=== PATIENT | female | born 1970 | race Caucasian/White ===

== ENCOUNTER 2021-02-11 11:52 | Outpatient (CLI) | payer BC, SELFPAY ==
[2021-02-11 13:57] LABS: Influenza A QL RT-PCR Negative (Negative); Influenza B QL RT-PCR Negative (Negative); SARS-CoV-2 RNA PCR Negative (Negative)
== END 2021-02-11 11:53 | disposition home or self-care (01) ==
LOC: CHSLAB 11:55
PROVIDERS: PCP Internal Medicine; Visit Provider Internal Medicine
DX: J06.9 Acute upper respiratory infection, unspecified (principal); Z20.822 Contact with and (suspected) exposure to COVID-19
CPT/HCPCS: 87502; C9803; U0003; U0005

== ENCOUNTER 2021-06-02 16:27 | Outpatient (CLI) | payer BC, SELFPAY | END 2021-06-02 16:28 | disposition home or self-care (01) | LOC: CHSOUTPT 16:31 | PROVIDERS: PCP Internal Medicine; Visit Provider Specialist | DX: C44.519 Basal cell carcinoma of skin of other part of trunk (principal) | CPT/HCPCS: 88305 ==

== ENCOUNTER 2021-08-06 16:44 | Outpatient (CLI) | payer BC, SELFPAY ==
--- NOTE | ~2021-08-06 | CT_ITS ---
EXAMINATION: CT abdomen pelvis wo con DATE: 08/06/2021 17:06 INDICATION: Umbilical pain, tenderness and redness for one week TECHNIQUE: Computed tomography (CT) of the abdomen and pelvis was performed without intravenous contr ast. Automated exposure control and iterative reconstruction technique were employed. Exam dose: 312 .31 mGy-cm total exam DLP. COMPARISON: None. FINDINGS: The lung bases are clear. Normal heart size. No pericardial or pleural effusion. Small sliding hiatal hernia. The gallbladder appears to be present but contracted. No hepatic, splenic, pancreatic, and adrenal or renal space-occupying mass lesion is detected. No bile duct or pancreatic duct dilatation. No urinar y tract calculus or hydroureteronephrosis is evident. The urinary bladder is unremarkable. Approximately 3 x 3.5 cm right ovarian cyst. The uterus measures approximately 10 x 5 cm height and up to 5.5 cm anteroposterior dimension. Normal caliber of the abdominal aorta. No intraperitoneal or retroperitoneal or pelvic mass lesion or adenopathy or ascites. Included skeletal structures are unremarkable. IMPRESSION: 3 x 3.5 cm right ovarian cyst Small sliding hiatal hernia Normal appendix Reviewed, dictated and finalized at [facility] Reviewed, dictated and finalized at [facility].
== END 2021-08-06 16:45 | disposition home or self-care (01) ==
LOC: CHSIMG 16:46
PROVIDERS: PCP Internal Medicine; Visit Provider Nurse Practitioner Family
DX: K42.9 Umbilical hernia without obstruction or gangrene (principal)
CPT/HCPCS: 74176

== ENCOUNTER 2022-03-26 00:36 | Day surgery (SDC) | payer BC, SELFPAY ==
[2022-03-15 14:33] VITALS: BMI 21.7
--- NOTE | 2022-03-15 14:35 | SUR.PREOP ---
Report to the Outpatient Waiting Room, entrance under the green pavilion located off [facility], at time 1000 on date 03/26/22. Planned Procedure Time: 1200. Time changes happen often and if your time is changed the preop area will call you the afternoon before. - You and your visitor will be asked to self-screen and do not enter if you have any COVID symptoms. - Only one visitor is requested with a max of two and NO children visitors are allowed at this time. - The patient visitor may be requested to leave or wait in car when not with patient due to distancing restrictions. - A mask is optional within the hospital at this time. Patients may have clear liquids (water, carbonated beverages, clear teas, apple juice) until 3 hours prior to surgery with a maximum of 20 ounces. - No food from midnight until time of surgery - Infants may have breast milk until 4 hours before surgery, formula 6 hours prior to surgery. - Children will be allowed to drink immediately following surgery. If applicable, please bring a bottle or sippy cup to assist with drinking. Juice, water, soda, and popsicles are readily available. For infants on formula, please bring formula the day of surgery. Pacifiers are allowed. Take the following medications with a SIP of water the morning of surgery: N/A DO NOT STOP ANY OF YOUR OTHER PRESCRIPTION MEDICATIONS PRIOR TO SURGERY ?EXCEPT THE FOLLOWING Medications to discontinue per physician N/A Date to take last dose N/A Please no make-up, nail latvian, hairspray, perfume, deodorant, or body powder the day of surgery. No jewelry (including any body piercings) or valuables the day of surgery, leave them at home. Please take a shower or bath the night before, or the morning of, surgery with an antibacterial soap. Wear comfortable, loose fitting clothing. Children are encouraged to wear pajamas. - Jewelry must be removed prior to entering the operating room. Rings and piercings that are not removed may be cut off. - The hospital will not accept responsibility for valuables. - Please leave all valuables, including medications, at home the day of surgery. If you are going home after surgery, a licensed helper driver must drive you home. - NO public transportation without another adult if you receive anesthesia. - We recommend that an adult stay with you for 24 hours following discharge. - We also recommend that you do not drive, make important decision, drink alcoholic beverages, or take any drugs that were not prescribed by your health care provider for at least 24 hours after your discharge time. For Pediatric surgeries, we recommend two adults accompany the child home. Follow any additional instructions given to you from your surgeon. If you or anyone in your household have experienced Covid symptoms in the past week, please notify your surgeon or the nurse liaison at the phone number below for possible testing. Telephone instructions given to CHING RAMOS and asked if any additional questions and then verbalized understanding. Patient advised to call surgeon office or pre surgery nurse liaison [phone] if any additional questions.
[2022-03-26] VITALS (9 sets, daily range): BP systolic 96–123; BP diastolic 59–71; PULSE 51–79; RESP 13–22; TEMP 36.1–36.7; O2SAT 99–100
[2022-03-26] MEDS: ACETAMINOPHEN 500 MG TABLET 1000 MG PO (08:03)
[2022-03-26] MEDS: LACTATED RINGERS 1,000 ML 30 ML IV CONT ×2 (08:20→10:54)
[2022-03-26] MEDS: KETOROLAC 15 MG/ML VIAL (*BKC) IV PUSH (08:31)
--- NOTE | 2022-03-26 08:44 | P.PNAN_ITS ---
Anes - Initial Pre Proc Eval Procedure: Operation Date: 03/26/22 10:00 Proposed Procedures p Open Incarcerated Umbilical Hernia Repair, Possible Mesh - Scottie Anthony DO Date/Time: 03/26/22 08:44 Surgeon: Scottie Anthony DO Pre Op Diagnosis: incarcerated umbilical hernia Patient Data Age: 52 Gender: F Height: 1.75 m Weight: 66.7 kg Allergies Allergy/AdvReac Type Severity Reaction Status Date / Time No Known Allergies Allergy Verified 03/26/22 08:02 Home Medications Medication Instructions Recorded Confirmed Type doxycycline monohydrate 50 mg 50 mg PO DAILY 03/15/22 03/15/22 History capsule Patient hx anesthesia problems: none Family hx anesthesia problems: none Results Review: All pre-operative results and documents have been reviewed as part of the pre- operative evaluation. [facility] Past Medical History Medical History History of blood clots Surgical History Surgical History Previous section Social History Social History Smoking status: Never smoker Alcohol intake: current Alcohol use details: Socially Living arrangements: with family Occupation/Education: occupation Additional occupation/education comments: [employer] Gender identity (if verbalized by the patient): Female Spiritual care concerns: No Anes - Eval Final PreProcedure Day of Procedure 03/26/22 08:44 Patient weight: normal Heart: regular rate and rhythm Lungs: clear to auscultation Airway: Mallampati scale class 1 Neurological: alert and oriented Last oral intake: >/= 8 hours ASA classification: I Emergent: no Anesthetic plan: proceed Anesthesia type and monitoring: general LMA and standard monitoring Results Review: All pre-operative results and documents have been reviewed as part of the pre- operative evaluation. Informed Consent: The patient's anesthetic plan and its attendant risks and benefits were discussed with the patient/family/POA. Questions were solicited and answers provided to the satisfaction of the patient/family/POA.
--- NOTE | 2022-03-26 09:44 | WPDHPUPDATE1 ---
History and Physical Update Update Date/Time: 03/26/22 09:44 History and Physical has been reviewed, including an updated exam of the patient. There are NO changes in the patient's condition. Risks, benefits, and alternatives have been discussed and questions answered. Patient agrees to proceed with procedure.
--- NOTE | 2022-03-26 09:44 | PM.IMHP ---
H&P: HPI History of Present Illness Date/Time: 03/26/22 09:44 Chief Complaint: umbilical hernia Narrative: 52 yo woman presents for umbilical hernia repair. She denies any changes since last seen in office. Review of Systems Review of Systems: All systems reviewed & are unremarkable except as noted in HPI and below Constitutional: Constitutional: Denies chills, Denies fever(s), Denies headache(s) and Denies weight loss Eyes: Eyes: Denies change in vision ENT: Denies dizziness, Denies headache(s), Denies neck mass and Denies throat swelling Cardiovascular: Cardiovascular: Denies chest pain, Denies lightheadedness and Denies dyspnea Respiratory: Respiratory: Denies cough, Denies dyspnea and Denies wheezing Gastrointestinal: Gastrointestinal: Denies abdominal pain, Denies change in bowel habits, Denies nausea and Denies vomiting Genitourinary: Genitourinary: Denies hematuria and Denies dysuria Musculoskeletal: Musculoskeletal: Reports as per HPI Integumentary/Breasts: Skin/Breast: Reports as per HPI Neurologic: Denies dizziness and Denies headache(s) Allergic/Immunologic: Allergic/Immunologic: Denies throat swelling and Denies wheezing [facility] Past Medical History Medical History History of blood clots Surgical History Surgical History Previous section Social History Social History Smoking status: Never smoker Alcohol intake: current Alcohol use details: Socially Living arrangements: with family Occupation/Education: occupation Additional occupation/education comments: [employer] Gender identity (if verbalized by the patient): Female Spiritual care concerns: No Meds Home Medications and Allergies Home Medications Medication Instructions Recorded Confirmed Type doxycycline monohydrate 50 mg 50 mg PO DAILY 03/15/22 03/15/22 History capsule Allergies Allergy/AdvReac Type Severity Reaction Status Date / Time No Known Allergies Allergy Verified 03/26/22 08:02 Vital Signs Vital Signs - 24 hr 03/26/22 08:10 Temperature 36.7 C Pulse Rate 64 Respiratory Rate 20 Blood Pressure 104/67 Pulse Oximetry 100 Oxygen Delivery Room Air Exam Const: General: no acute distress and alert Orientation/consciousness: patient oriented x3 HENMT: Head: normocephalic and atraumatic Ears: hearing grossly normal bilaterally Face/Nose/Sinus: Normal nares present Mouth: Yes Normal oral and palatal mucosa present Eyes: Periorbital: periorbital findings normal Sclera: sclerae normal EOM: EOMs intact bilaterally Neck: Neck: normal visual inspection, no lymphadenopathy and trachea midline Chest: Chest palpation & inspection: normal inspection of the chest Resp: Effort & Inspection: normal respiratory effort Auscultation: clear to auscultation bilaterally Cardio: Jugular venous distension: no JVD Rate: regular rate Rhythm: regular rhythm Heart sounds: S1 normal heart sound present and S2 normal heart sound present Peripheral pulses: Peripheral pulses 2+ throughout GI: Inspection: normal to inspection GI Palp: Yes Soft to palpation, No Tenderness to palpation present (GI), No Guarding due to palpation present (GI), Yes Hernia present (5mm umbilical hernia) and No Rebound tenderness present Percussion: Yes normal to percussion Auscultation: normal bowel sounds : General: Yes no CVA tenderness Back/Spine/Pelvis: Back: no CVA tenderness Neuro: General: patient oriented x3, no focal motor deficits and CN's II-XI intact bilaterally Cognition (Neuro): normal cognition Speech: normal speech Motor exam (neuro): 5/5 motor strength present throughout Extrem: General: capillary refill normal and no clubbing, cyanosis or edema Assessment and Plan Assessment and plan (1) Incarcerated umbilical hernia:
[2022-03-26] MEDS: ceFAZolin 2 GM/D5W 50 ML 2 GM/50 ML BAG IVPB (09:59)
[2022-03-26] MEDS: BUPIVACAINE/EPINEPHRINE 0.5% 10 ML VIAL 30 ML INFILTRATE (10:16)
--- NOTE | 2022-03-26 10:44 | W.PM.PROC2 ---
Procedure Note - Detailed Date of Procedure 03/26/22 Pre-op Diagnosis incarcerated umbilical hernia Post-op Diagnosis Same Procedure Performed Incarcerated 0.5 cm umbilical hernia repair Surgeon Scottie Anthony, DO Anesthesia General and Local (0.5% bupivacaine with epinephrine) Indications This is a 52-year-old woman who presented with an incarcerated umbilical hernia. About 6 months ago she had noticed some umbilical pain and a bulge at her umbilical skin. She was found to have a small umbilical hernia that appeared to be incarcerated with fat. The skin was somewhat reddened but there were no other surrounding signs of infection. Discussions were made with the patient about treatment options and decision was made to proceed with incarcerated umbilical hernia repair. Findings Incarcerated umbilical hernia repair was performed. The umbilical hernia measured 0.5 cm. The hernia sac was excised and sent to the lab for pathology. The hernia was repaired primarily using 0 Ethibond [id number] sutures. A total of 2 sutures were placed transversely to approximate the fascia. The patient did have some chronically scarred umbilical skin that was very indurated and densely scarred to the hernia sac. I had to excise umbilical skin involved. Description of Procedure Procedure as well as risks, benefits, and alternatives were discussed with the patient. Written consent was obtained and placed in chart prior to procedure. Patient was brought back to surgical suite. She was placed supine on operating table to. Time-out was done to confirm patient and procedure. She was then intubated by the anesthesia department. Her abdomen was prepped and draped in sterile fashion using chlorhexidine prep. 0.5% bupivacaine with epinephrine was infiltrated locally around the area for surgery. A 2 cm curvilinear incision was made at the superior edge of the umbilical skin using a 15 blade scalpel. Electrocautery was used for hemostasis and for dissection through the subcutaneous tissue. The umbilical hernia defect was identified and the fascia was cleared circumferentially around. The umbilical skin was densely adherent to the umbilical hernia sac and the umbilical skin appeared very indurated around it. I excised the umbilical skin using a 15 blade scalpel and then excised the hernia sac using electrocautery. The hernia defect measured 5 mm. The fascial edges were reapproximated to close the hernia using 0 Ethibond [id number] sutures. A total of 2 sutures were placed transversely and then tied down in place to repair the defect. The repair was inspected and appeared secure. 0.5% bupivacaine with epinephrine was infiltrated locally around the fascia and subcutaneous space. The umbilical skin was then brought back together using 4-0 Monocryl inverted interrupted sutures. The deep dermis of the incision was then reapproximated using 3-0 Vicryl inverted interrupted sutures. The skin was then approximated using 4-0 Monocryl running subcuticular suture. Exofin glue was then applied on top. The patient was then awakened from anesthesia, extubated, and transferred to recovery. Estimated Blood Loss 5 Pathology Yes (Umbilical hernia sac) Complications No immediate complications Condition Stable Disposition Same day [facility] Billing Surgery - Charge Forward: Surgery Billing
== END 2022-03-26 12:56 | disposition home or self-care (01) ==
PROVIDERS: PCP Internal Medicine; Visit Provider Surgery
PROC: (CPT 49592; principal; 2022-03-26 10:00)
DX: K42.0 Umbilical hernia with obstruction, without gangrene (principal); N80.C11 Endometriosis of the anterior abdominal wall, fascia and muscular layers
CPT/HCPCS: 49592; 88302; A9270; J0690; J1100; J1170; J1885; J2250; J2405; J2704; J2710; J3010; J7120

== ENCOUNTER 2023-01-27 00:58 | Day surgery (SDC) | payer BC, SELFPAY ==
[2023-01-17 11:03] VITALS: BMI 21.5
--- NOTE | 2023-01-25 10:43 | SUR.PREOP ---
Patient called regarding upcoming procedure. Reviewed preop instructions, appointment times, and procedure prep.
[2023-01-27 06:35] VITALS: BP 106/67; PULSE 71; RESP 18; TEMP 36.3; O2SAT 100; BMI 20.9
[2023-01-27] MEDS: LACTATED RINGERS 1,000 ML 30 ML IV CONT (06:54)
--- NOTE | 2023-01-27 07:22 | P.PNAN_ITS ---
Anes - Initial Pre Proc Eval Procedure: Operation Date: 01/27/23 08:00 Proposed Procedures p Screening Colonoscopy - Scottie Anthony DO Date/Time: 01/27/23 07:22 Surgeon: Scottie Anthony DO Pre Op Diagnosis: neoplasm screening Patient Data Age: 53 Gender: F Height: 1.78 m Weight: 66.3 kg Last Vital Signs Temp 97.3 F L 01/27/23 06:35 Pulse 71 01/27/23 06:35 Resp 18 01/27/23 06:35 BP 106/67 01/27/23 06:35 Pulse Ox 100 01/27/23 06:35 O2 Del Method Room Air 01/27/23 06:35 Allergies Allergy/AdvReac Type Severity Reaction Status Date / Time No Known Allergies Allergy Verified 01/27/23 06:41 Home Medications Medication Instructions Recorded Confirmed Type No Home Medications 10/27/22 01/27/23 History Patient hx anesthesia problems: none Family hx anesthesia problems: none Results Review: All pre-operative results and documents have been reviewed as part of the pre- operative evaluation. [facility] Past Medical History Medical History (Updated 10/27/22 @ 09:29 by Ab Alonzo MD) Endometriosis Fibroid, uterine History of blood clots Ovarian cyst Surgical History Surgical History H/O umbilical hernia repair Open umb hernia repair 03/26/22 Previous section Social History Social History (Updated 10/27/22 @ 08:20 by ALLEN Coe) Smoking status: Never smoker Alcohol intake: former Alcohol use details: Socially Substance use: never Substance use type: does not use Lack of Transportation: No Lack of Food: Never True Current Housing: I Have Housing Concerned About Future Housing: No Difficulty Paying Gas/Electric Bills: No Difficulty Paying for Meds: No Currently Unemployed: No Education: Bachelor's Degree Difficulty w/ Childcare or Family Care: No Living arrangements: other Additional living arrangements comments: with sp Occupation/Education: occupation Additional occupation/education comments: [employer] Gender identity (if verbalized by the patient): Female Sexual Orientation (if Verbalized by the Patient): Straight or Heterosexual Spiritual care concerns: No Anes - Eval Final PreProcedure Day of Procedure 01/27/23 07:22 Patient weight: normal Heart: regular rate and rhythm Lungs: clear to auscultation Airway: Mallampati scale class II Neurological: alert and oriented Last oral intake: >/= 8 hours ASA classification: I Emergent: no Anesthetic plan: proceed Anesthesia type and monitoring: general GIVS and standard monitoring Results Review: All pre-operative results and documents have been reviewed as part of the pre- operative evaluation. Informed Consent: The patient's anesthetic plan and its attendant risks and benefits were discussed with the patient/family/POA. Questions were solicited and answers provided to the satisfaction of the patient/family/POA.
--- NOTE | 2023-01-27 07:55 | PM.IMHP ---
H&P: HPI History of Present Illness Date/Time: 01/27/23 07:55 Chief Complaint: Screening for colorectal cancer Narrative: This is a 53-year-old woman who presents for colonoscopy. She has never had a colonoscopy before. She denies any family history of colon cancer. She denies any hematochezia or melena. Review of Systems Review of Systems: All systems reviewed & are unremarkable except as noted in HPI and below Constitutional: Constitutional: Denies chills, Denies fever(s), Denies headache(s) and Denies weight loss Eyes: Eyes: Denies change in vision ENT: Denies dizziness, Denies headache(s), Denies neck mass and Denies throat swelling Cardiovascular: Cardiovascular: Denies chest pain, Denies lightheadedness and Denies dyspnea Respiratory: Respiratory: Denies cough, Denies dyspnea and Denies wheezing Gastrointestinal: Gastrointestinal: Denies abdominal pain, Denies change in bowel habits, Denies nausea and Denies vomiting Genitourinary: Genitourinary: Denies hematuria and Denies dysuria Musculoskeletal: Musculoskeletal: Reports as per HPI Integumentary/Breasts: Skin/Breast: Reports as per HPI Neurologic: Denies dizziness and Denies headache(s) Allergic/Immunologic: Allergic/Immunologic: Denies throat swelling and Denies wheezing [facility] Past Medical History Medical History (Updated 01/27/23 @ 07:56 by Scottie Anthony DO) Endometriosis Fibroid, uterine History of blood clots Ovarian cyst Surgical History Surgical History H/O umbilical hernia repair Open umb hernia repair 03/26/22 Previous section Social History Social History (Updated 10/27/22 @ 08:20 by ALLEN Coe) Smoking status: Never smoker Alcohol intake: former Alcohol use details: Socially Substance use: never Substance use type: does not use Lack of Transportation: No Lack of Food: Never True Current Housing: I Have Housing Concerned About Future Housing: No Difficulty Paying Gas/Electric Bills: No Difficulty Paying for Meds: No Currently Unemployed: No Education: Bachelor's Degree Difficulty w/ Childcare or Family Care: No Living arrangements: other Additional living arrangements comments: with sp Occupation/Education: occupation Additional occupation/education comments: [employer] Gender identity (if verbalized by the patient): Female Sexual Orientation (if Verbalized by the Patient): Straight or Heterosexual Spiritual care concerns: No Meds Home Medications and Allergies Home Medications Medication Instructions Recorded Confirmed Type No Home Medications 10/27/22 01/27/23 History Allergies Allergy/AdvReac Type Severity Reaction Status Date / Time No Known Allergies Allergy Verified 01/27/23 06:41 Vital Signs Vital Signs - 24 hr 01/27/23 06:35 Temperature 36.3 C L Pulse Rate 71 Respiratory Rate 18 Blood Pressure 106/67 Pulse Oximetry 100 Oxygen Delivery Room Air Exam Const: General: no acute distress and alert Orientation/consciousness: patient oriented x3 HENMT: Head: normocephalic and atraumatic Ears: hearing grossly normal bilaterally Face/Nose/Sinus: Normal nares present Mouth: Yes Normal oral and palatal mucosa present Eyes: Periorbital: periorbital findings normal Sclera: sclerae normal EOM: EOMs intact bilaterally Neck: Neck: normal visual inspection, no lymphadenopathy and trachea midline Chest: Chest palpation & inspection: normal inspection of the chest Resp: Effort & Inspection: normal respiratory effort Auscultation: clear to auscultation bilaterally Cardio: Jugular venous distension: no JVD Rate: regular rate Rhythm: regular rhythm Heart sounds: S1 normal heart sound present and S2 normal heart sound present Peripheral pulses: Peripheral pulses 2+ throughout GI: Inspection: normal to inspection GI Palp: Yes Soft to palpation, No Tenderne
[2023-01-27 08:33] VITALS: BP 130/58; PULSE 71; RESP 18; O2SAT 100
[2023-01-27 08:43] VITALS: BP 110/66; PULSE 68; RESP 17; O2SAT 100
[2023-01-27 08:53] VITALS: BP 113/72; PULSE 65; RESP 22; O2SAT 100
== END 2023-01-27 09:00 | disposition home or self-care (01) ==
PROVIDERS: PCP Internal Medicine; Visit Provider Surgery
PROC: 0DJD8ZZ Inspection of Lower Intestinal Tract, Via Natural or Artificial Opening Endoscopic (ICD-10-PCS; CPT 45378; principal; 2023-01-27 08:00)
DX: Z12.11 Encounter for screening for malignant neoplasm of colon (principal); K57.30 Diverticulosis of large intestine without perforation or abscess without bleeding
CPT/HCPCS: 45378; J2704; J7120

== ENCOUNTER 2024-08-02 14:05 | Outpatient (CLI) | payer BC, SELFPAY ==
--- NOTE | ~2024-08-02 | MM_ITS ---
EXAMINATION: MM screening domingo BI w jose HISTORY: Screening TECHNIQUE: Craniocaudal and mediolateral oblique 3-D tomosynthesis images were obtained and synthetic 2-D images were generated. CAD analysis was submitted and interpreted. COMPARISON: 04/05/2018 BREAST PARENCHYMAL COMPOSITION: Dense: The breasts are extremely dense, which lowers the sensitivity of mammography. FINDINGS: There are developing asymmetries in the upper outer quadrant of the right breast. The left breast is stable without evidence for malignancy. IMPRESSION: 1. Developing right breast asymmetries. 2. Additional mammographic views and possible breast ultrasound are recommended. BI-RADS Category 0: Incomplete: Needs additional imaging evaluation. Reviewed, dictated and finalized at location A. IMPRESSION: 1. Developing right breast asymmetries. 2. Additional mammographic views and possible breast ultrasound are recommended . BI-RADS Category 0: Incomplete: Needs additional imaging evaluation.
--- OUTSIDE RECORDS SUMMARY | 2024-08-02 14:24 | XMS_ITS | Referral Summary ---
Author Organization [facility] Office Center Address [address] [place] [address] Care Team Providers Care Bee Producer Name Role Phone Fabian Hernandez MD Primary Care Provider [phone] Fabian Hernandez MD Unavailable [phone] Allergies No known active allergies Medications ofloxacin (OCUFLOX) 0.3 % ophthalmic solution Administer 1 drop into the right eye 2 (two) times a day 0 9 Active metroNIDAZOLE (METROGEL) 0.75 % gelIndications: Acne Rosacea Apply topically 2 (two) times a day 3 Active ibuprofen (ADVIL,MOTRIN) 800 mg tablet Take 1 tablet (800 mg total) by mouth every 6 (six) hours as needed for pain (menstral cramps) Active zglvjirbk-AH-ef etaminophen 12.5-5-325 mg tabletIndicatio ns:Nasal Congestion Take by mouth as needed Active mv,calcium,min/ iron/folic/vitK (MULTI FOR HER ORAL) Take 2 tablet/chew tab by mouth as needed Active Active Problems Problem Noted Date Diagnosed Date Pelvic mass in female 09/08/2022 Acute abscess of breast 02/01/2019 Cyst of breast 02/01/2019 Superficial phlebitis and th rombophlebitis of right lower extremity 10/23/2018 Assessment & Plan (10/23/2018 2:43 PM CDT): Impression: Small 1 cm superficial thrombophlebitis noted to a branch vein off her distal Right great saphenous vein. Plan: Warm compress and nonsteroidal anti-inflammatory p.r.n.. Varicose veins of both lower extremities with pa in 11/03/2016 Assessment & Plan (10/23/2018 2:44 PM CDT): Impression: Persistent right lower extremity edema, leg fatigue with periods of prolonged standing with painful varicosities. Greater than 2nd reflux noted to her right great saphenous vein. Patient would be a good candidate for right great saphenous vein endovenous laser ablation therapy stab phlebectomies. The procedure and associated risks were discussed with the patient in detail in which she acknowledged and agreed to proceed. Plan: Schedule elective right great saphenous vein endovenous laser ablation therapy. Social History Tobacco Use Types Packs/Day Years Used Date Smoking Tobacco: Never Passive Smoke Exposure: Never Smokeless Tobacco: Never Tobacco Cessation:Counseling Given: Not Answered Personal Safety Answer Date Recorded Have you ever been in or are you currently in a harmful physical or emotional relationship or is someone making you feel afraid or unsafe? Denies 12/22/2022 Comments Unknown Sex and Gender Information Value Date Recorded Sex Assigned at Not on file Legal Sex Female 3:02 AM [employer] TILE [employer] Gender Identity Not on file Sexual Orientation Not on file Last Filed Vital Signs Vital Sign Reading Time Taken Comments Blood Pressure 111/73 01/19/2023 10:33 AM [employer]AIC TILE [employer] Pulse 71 01/19/2023 10:33 AM [employer] TILE [employer] Temperature 36.9 C (98.4 F) 01/19/2023 10:33 AM MOSAIC TILE [employer]ER Respiratory Rate 16 01/19/2023 10:33 AM MOSAIC TILE [employer]KER Oxygen Saturation 97% 01/19/2023 10:33 AM MOSAIC TILE [employer]KER Inhaled Oxygen Concentration - - Weight 69.4 kg (153 lb) 01/19/2023 10:33 AM MOSAIC TILE [employer]KER Height 175.3 cm (5' 9.02) 01/19/2023 10:[address] Body Mass Index 22.58 01/19/2023 10:33 AM MOSAIC TILE [employer]KER Plan of Treatment Not on file Procedures Procedure Name Priority Date/Time Associated Diagnosis Comments DIGITAL MAMMOGRAPHY Routine 07/24/2012 1 2:00 AM CDT from Last 3 Months or Most Recently Relevant to Health Maintenance Results * DIGITAL MAMMOGRAPHY (07/24/2012 12:00 AM CDT) Anatomical Region Laterality Modality Breast Mammography 07/24/2012 Narrative 07/25/2012 7:59 AM CDT [place], [place] MICHELLE RAMOSMHL O ENCOUNTER: [id number] BIRTHDATE: 1970 ORDERING PHYSICIAN: Nahed Han MD ATTENDING PHYSICIAN: Nahed Han MD TECHNOLOGIST: Tamar Hooks EXAM DATE: 07/24/2012 14:01 X-RAY#: [id number] DEPARTMENT OF RADIOLOGY MAMMOGRAPHY REPORT EXAM DESCRIPTION Bilateral screening mammogram. HISTORY Screening. FINDINGS Comparison is made with exam of 10/16/2008. Dense fibroglandular tissue remains in the breasts bilaterally. The appearance is stable. No developing mass, architectural distortion, or suspicious microcalcifications are seen. IMPRESSION No radiographic evidence of malignancy. Recommend routine annual screening. 2-dimensional direct digital mammography and 3-dimensional tomosynthesis was obtained. Computer Aided Detection (CAD) version 7.2 was used in the interpretation of this study. SUMMARY ASSESSMENT _x_ ACR 1 Negative. ___ ACR 2 Benign finding(s). ___ ACR 3 Probably benign finding - initial short-interval follow-up suggested. ___ ACR 4 Suspicious abnormality - biopsy should be considered. ___ ACR 5 Highly suggestive of malignancy - Appropriate action should be taken. ___ ACR 6 Known biopsy - proven malignancy - Appropriate action should be taken. ___ ACR 0 Needs additional imaging evaluation and/or prior mammograms for comparison. The above report was dictated at [facility]. Authenticated by Karen Bond MD On 07/25/2012 08:09 Karen Bond MD LJS:cass Doc #: [id number] Dictation CC: Nahed Han MD Procedure Note Provider, MD Adam - 06/13/2016 [place], [place] MICHELLE RAMOSWOL ENCOUNTER: [id number] BIRTHDATE: 1970 ORDERING PHYSICIAN: Nahed Han MD ATTENDING PHYSICIAN: Nahed Han MD TECHNOLOGIST: Tamar Hooks EXAM DATE: 07/24/2012 14:01 X-RAY#: [id number] DEPARTMENT OF RADIOLOGY MAMMOGRAPHY REPORT EXAM DESCRIPTION Bilateral screening mammogram. HISTORY Screening. FINDINGS Comparison is made with exam of 10/16/2008. Dense fibroglandular tissue remains in the breasts bilaterally. The appearance is stable. Nodeveloping mass, architectural distortion, or suspicious microcalcifications areseen. IMPRESSION No radiographic evidence of malignancy. Recommend routine annualscreening. 2-dimensional direct digital mammography and 3-dimensional tomosynthesiswas obtained. Computer Aided Detection (CAD) version 7.2 was used in the interpretationof this study. SUMMARY ASSESSMENT _x_ ACR 1 Negative. ___ ACR 2 Benign finding(s). ___ ACR 3 Probably benign finding - initial short-interval follow-up suggested. ___ ACR 4 Suspicious abnormality - biopsy should be considered. ___ ACR 5 Highly suggestive of malignancy - Appropriate action shouldbe taken. ___ ACR 6 Known biopsy - proven malignancy - Appropriate action shouldbe taken. ___ ACR 0 Needs additional imaging evaluation and/or prior mammogramsfor comparison. The above report was dictated at [facility]. Authenticated by Karen Bond MD On 07/25/2012 08:09 Karen Bond MD LJS:cass Doc #: [id number] Dictation CC: Nahed Han MD Historical Provider MD SHETTY MAMMO PROCEDURES [place]ippa l Result from Last 3 Months or Most Recently Relevant to Health Maintenance Insurance [employer] [place] [address] [employer] [place] [place] [address] [place] Care Teams Bee Producer Relationship Specialty Start Date End Date Fabian Hernandez MD PCP - General 10/19/18 Fabian Hernandez MD Internal Medicine 10/19/18
--- OUTSIDE RECORDS SUMMARY | 2024-08-02 14:24 | XMS_ITS | Clinical Summary ---
Author Organization [facility] Office Center Address [address] [place] [address] Care Team Providers Care Cage Fighter Name Role Phone Fabian Hernandez MD Primary Care Provider [phone] Fabian Hernandez MD Unavailable [phone] Allergies No known active allergies Medications [...] as needed for pain (menstral cramps) Active opwssywhu-ZB-gi etaminophen 12.5-5-325 mg tabletIndicatio ns:Nasal Congestion Take [...] great saphenous vein endovenous laser ablation therapy. Surgical History Surgery Date Site/Laterality Comments SECTION 02/14/2005 - 02/13/2006 VASCULAR SURGERY 01/28/2017 LLE EVLT VEIN SURGERY 12/29/2018 Right UMBILICAL HERNIA REPAIR Medical History Medical History Date Comments Basal cell carcinoma Family History Medical History Relation Name Comments No Known Problems Father No Known Problems Mother No Known Problems Sister 1 No Known Problems Sister 2 Anesthesia problems Neg Hx Relation Name Status Comments Father Alive Mother Alive Sister 1 Alive Sister 2 Alive Social History Tobacco Use Types Packs/Day Years [...] on file Legal Sex Female 3:02 AM [employer]NAGER [employer] Gender Identity Not on file Sexual Orientation Not on file Obstetrics History Para Term AB IAB SAB Ectopic Multiple Livin g Live Births 3 2 2 1 0 1 2 Date Outcome GA Total Labor Labor/2nd/3rd Weight Sex Type Anes PTL Raven A1 A5 Name Clin Term Term AB Last Filed Vital Signs Vital Sign Reading Time Taken Comments Blood Pressure 111/73 01/19/2023 10:33 AM [employer]GER [employer] Pulse 71 01/19/2023 10:33 AM [employer]NAGER [employer] Temperature 36.9 C (98.4 F) 01/19/2023 10:33 AM MANAGER INTENS[employer] Respiratory Rate 16 01/19/2023 10:33 AM MANAGER [employer] Oxygen Saturation 97% 01/19/2023 10:33 AM MANAGER [employer]ENS[employer] Inhaled Oxygen Concentration - - Weight 69.4 kg (153 lb) 01/19/2023 10:33 AM [employer]NAGER [employer] Height 175.3 cm (5' 9.02) 01/19/2023 10:33 AM C Body Mass Index 22.58 01/19/2023 10:33 AM MANAGER [employer]ENS[employer] Plan of Treatment Health Maintenance Due Date Last Done Comments Cervical Cancer Screening 1970 Colon Cancer Screening-Colonoscopy 1970 Depression Screening 1970 Hepatitis C Screening 1970 DTaP/Tdap/Td Vaccine (1 - Tdap) 01/20/1983 Hepatitis B Screening 01/20/1990 Regular Well Visit/Exam 18-64 01/20/1990 Breast Cancer Screening-Mammogram 07/24/2013 07/24/2012 Zoster Vaccine (1 of 2) 01/20/2022 Covid-19 Vaccine (3 - 2023-2 5 season) 2023 12/21/2020, 04/29/2020 Influenza Vaccine (Season Ended) 2024 Pneumococcal vaccine <65 Aged Out No longer eligible based on patient's age to complete this topic Procedures Procedure Name Priority Date/Time Associated Diagnosis Comments DIGITAL MAMMOGRAPHY Routine 07/24/2012 1 2:00 AM CDT from Last 3 Months or Most Recently Relevant to Health Maintenance Results * DIGITAL MAMMOGRAPHY (07/24/2012 12:00 AM CDT) Anatomical Region Laterality Modality Breast Mammography 07/24/2012 Narrative 07/25/2012 7:59 AM CDT [place], [place] CHING RAMOS WOL O ENCOUNTER: [id number] BIRTHDATE: 1970 ORDERING PHYSICIAN: Nahed Han MD ATTENDING PHYSICIAN: Nahed Han MD TECHNOLOGIST: Tamar Hooks EXAM DATE: 07/24/2012 14:01 X-RAY#: [id number] DEPARTMENT OF RADIOLOGY MAMMOGRAPHY REPORT EXAM DESCRIPTION [...] comparison. The above report was dictated at [facility]. Authenticated by Karen Bond MD On 07/25/2012 08:09 Karen Bond MD LJS:cass Doc #: [id number] Dictation CC: Nahed Han MD Procedure Note Provider, MD Adam - 06/13/2016 [place], [place] CHING RAMOSWOMHL ENCOUNTER: [id number] BIRTHDATE: 1970 ORDERING PHYSICIAN: Nahed Han MD ATTENDING PHYSICIAN: Nahed Han MD TECHNOLOGIST: Tamar Hooks EXAM DATE: 07/24/2012 14:01 X-RAY#: [id number] DEPARTMENT OF RADIOLOGY MAMMOGRAPHY REPORT EXAM DESCRIPTION [...] comparison. The above report was dictated at [facility]. Authenticated by Karen Bond MD On 07/25/2012 08:09 Karen Bond MD LJS:cass Doc #: [id number] Dictation CC: Nahed Han MD Historical Provider MD SHETTY MAMMO PROCEDURES Pippa l Result from Last 3 Months or Most Recently Relevant to Health Maintenance Insurance [place] [employer] Care Teams Cage Fighter Relationship Specialty Start Date End Date Fabian Hernandez MD PCP - General 10/19/18 Fabian Hernandez MD Internal Medicine 10/19/18
--- OUTSIDE RECORDS SUMMARY | 2024-08-02 14:24 | XMS_ITS | Data Portability ---
Author Organization [facility] Address [address] [place] [address] Care Team Providers Care Crew Car Driver Name Role Phone LACI AMADOR Primary Care Provider Assessment Encounter Date Assessment Date Assessment LastModified by Organization Details LastModified Time 05/05/2023 05/05/2023 Annual gynecological exam performed. Patient will come back in a year unless there are new symptoms. [email or web address] Not available 05/05/2023 17:28:40 Plan of Treatment Reminders Order Date Submit Date Provider Last Modified By Organization Details Last Modified Time Details Appointments [facility]-EST 2024 02:45P M SHEILA RED NP Not available Not available Not available Lab ca 125, serum 2022 023 [facility] (Lab), [address], [place], [address], 08/06/2022 03:17:13 Referral None recorded. Procedures None recorded. Surgeries None recorded. Imaging US, transvagi nal 2022 023 [email or web address], [address], [address], [place], [address], 08/04/2022 12:55:13 Medication Orders None recorded. Patient TargetsNo targets recorded. Patient InstructionsNo instructions recorded. Reason for Referral None Reported. Results Created Date Observation Date Name Description Value Unit Range Abnormal Flag Note LastModifiedBy Organization Detail LastModifiedTime 08/06/19 23 08/05/2022 CA 125 Ca 125 115.0 units /mL 0.0-35 .0 high This assay was perfo rmed using [employer] ratio n reage nts and test kits. Value s obtai cristopher with other assay metho ds or kits canno t be used inter garner eajackeliney . Not Available [facility] (Lab) [address], [place], [address], 08/06/2022 03:17:13 05/05/19 24 05/05/2023 IMAGE GUIDE D PAP AND HPV REGAR DLESS image guided Pap, HPV regardless of Pap result SEE RESULT S BELOW CASE REPOR T: Cytol ogy Gynec ologi erinn Repor t Case: [id number] Autho laci g Provi pascual: Felisha Salamanca MD Colle cted: 05/04 1714 Order ing Locat ion: [place] [facility] Recei annette: 05/05 0230 First Screpetey n: Eric Newby , RAYMON Rescr een: Kushal Rojas am, CT Speci men: Johnathon orellana Pap - Image d, Cervi x STATE MENT OF ADEQU ACY: Satis facto ry for evalu ation Trans forma tion zone compo nent absen t The absen ce of an endoc ervic al compo nent was confi rmed by an addit ional johnathon lucas. FINAL DIAGN OSIS: Negat coretta for Intra epith elial Lesio n or Kristen miranda (NIL) . Elect aly malcolm d by Kushal Rojas am, CT on 2023 at 5:34 AM ----- ----- ----- ----- ----- ----- ----- ----- ----- ----- ----- ----- ----- ----- ----- ----- ----- ---- HPV RESUL TS: HPV mRNA E6/E7 : No HPV mRNA Detec svetlana NOTE: This high risk HPV mRNA assay detec ts fourt een high- risk HPV types (16, 18, 31, 33, 35, 39, 45, 51, 52, 56, 58, 59, 66, 68) witho ut diffe renti ation . COMME NT: This speci men was revie wed by a Cytot echno logis t and/o r Patho logis t (as indic ated in this repor t) after evalu ation using the Thinp rep Imagi ng Syste m. CLINI ERINN INFOR MATIO N: Menst rual Statu s: LMP (if appli cable ): Clini erinn Histo ry/Pr eviou s Pap: Type of Neopl joanie (if appli cable ): Signi fican t Clini erinn Findi ngs: Other Histo ry: Hormo leslie (if appli cable ): PAP EDUCA ARCADIO L NOTE: The Pap Test is a scree esteban test with an inher ent false negat coretta rate. Liqui d-bas ed sampl ing may decre ase, but will not elimi suha, false negat coretta resul ts. A negat coretta resul t does not precl ude the prese nce and/o r devel opmen t of disea se, since the prese nce of abnor mal cells in the sampl e depen ds on the locat ion of the lesio n and sampl ing techn ique. Roxann nued regul ar scree esteban is the best metho d of cance r preve ntion . If repor svetlana cytol ogic findi ng do not corre late with physi erinn and/o r histo rical findi ngs, furth er inves tigat ion is recom oscar d, as clini ton nye nted. Not Available [facility] (Lab) [address], [place], [address], 05/10/2023 06:38:27 04/20/1904/19/2022 US, pelvi s No observ ation record ed. [email or web address] [facility] [address], [place], [address], 04/19/2022 18:20:10 04/20/19 23 04/19/2022 US, trans hernesto al No observ ation record ed. [email or web address] [facility] [address], [place], [address], 04/19/2022 18:20:01 04/20/19 23 04/19/2022 US, pelvi s No observ ation record ed. [email or web address] [address], [place], [address], 04/19/2022 21:25:42 08/04/19 23 08/03/2022 US, pelvi s No observ ation record ed. [email or web address] [address], [place], [address], 08/03/2022 22:10:39 08/04/19 23 08/03/2022 US, trans vagin al No observ ation record ed. [email or web address] [facility] [address], [place], [address], 08/03/2022 18:31:22 Result Notes None recorded. Procedures Surgical History Date Name Laterality Status Provider Name and Address Organization Details Recorded Time 4 Date of Last Pap Smear completed [facility] 05/05/2023 17:29:41 3 hernia repair completed [facility] 05/05/2023 17:30:06 8 procedure on vein completed [facility] 09/14/2021 11:48:56 6 section completed [facility] 09/14/2021 11:48:21 1 extraction of wisdom tooth completed [facility] 09/14/2021 11:48:35 Imaging Results None recorded. Procedure Notes None recorded. Medical Equipment None Reported. Allergies No known drug allergies Medications Name Sig Start Date Stop Date Status Note LastModified by Organization Details LastModified Time ketoconaz ole 2 % shampoo 05/04 completed Not Available Not Available Not Available hydrocodo ne 5 mg-acetam inophen 325 mg tablet 05/03 completed Not Available Not Available Not Available Keflex 500 mg capsule take 1 capsule by oral route every 12 hours 05/03 completed Prescrib ed Elsewher e: No Locat ion: [facility] M odify By: lee luke DateTime : 04/13/19 11:12:56 AM Not Available Not Available Not Available doxycycli ne monohydra te 50 mg capsule 05/04 completed Not Available Not Available Not Available prednisol one acetate 1 % eye drops,elvis pension 05/04 completed Not Available Not Available Not Available neomycin- polymyxin -dexameth 3.5 mg/mL-10, 000 unit/mL-0 .1% eye drops 05/04 completed Not Available Not Available Not Available metronida zole 0.75 % topical gel 08/05 completed Not Available Not Available Not Available amoxicill in 875 mg-potass ium clavulana te 125 mg tablet 05/04 completed Not Available Not Available Not Available neomycin 3.5 mg/g-poly myxin B 10,000 unit/g-de xameth 0.1 % eye oint 05/04 completed Not Available Not Available Not Available Vitals Date Recorded Body height Body mass index (BMI) Body weight Systolic blood pressure Diastolic blood pressure Provider Name and Address Organization Details Last Updated DateTime 05/03/2022 170.18 cm 24.1 kg/m2 02514.22 g 121 mm[Hg] 72 mm[Hg] Milagros Laura [facility] 3 16:51:26 Date Recorded Body height Body mass index (BMI) Body weight Systolic blood pressure Diastolic blood pressure Provider Name and Address Organization Details Last Updated DateTime 05/05/2023 170.18 cm 24.3 kg/m2 32103.82 g 131 mm[Hg] 78 mm[Hg] Dena Hopper [facility] 4 17:28:54 Date Recorded Body height Body mass index (BMI) Body weight Systolic blood pressure Diastolic blood pressure Provider Name and Address Organization Details Last Updated DateTime 07/31/2024 170.18 cm 24.2 kg/m2 81197.66 g 109 mm[Hg] 67 mm[Hg] Jenny Chambers [facility] 5 14:39:58 Date Recorded Body height Body mass index (BMI) Body weight Systolic blood pressure Diastolic blood pressure Provider Name and Address Organization Details Last Updated DateTime 08/05/2022 170.18 cm 23.2 kg/m2 00301.67 g 118 mm[Hg] 76 mm[Hg] Dena Hopper [facility] 3 17:05:38 Social History Question Answer Notes LastModified by Organizat ion Details LastModified Time Tobacco Smoking Status Never Smoker Dena Hopper [facility] 08/05/2022 17:07:25 Do You Have An Advance Directive? No [email or web address] Information n ot available 08/05/2022 How Many Years Have You Consumed Alcohol? 30 Information not available 08/05/2022 Are You Blind Or Do You Have Difficulty Seeing? No [email or web address] Information n ot available 09/14/2021 What Is Your Level Of Caffeine Consumption? Moderate [email or web address] Information not available 09/14/2021 How Much Tobacco Do You Chew? None Information not available 05/03/2022 In The 14 Days Before Symptom Onset, Have You Had Close Contact With A Laboratory-confirm ed COVID-19 While That Case Was Ill? No Information n ot available 09/14/2021 In The 14 Days Before Symptom Onset, Have You Had Close Contact With A Person Who Is Under Investigation For COVID-19 While That Person Was Ill? No Information not available 09/14/2021 Have You Been To An Area Known To Be High Risk For COVID-19? No [email or web address] Information not available 09/14/2021 Are You Deaf Or Do You Have Serious Difficulty Hearing? No Information not available 09/14/2021 What Type Of Diet Are You Following? REGULAR [email or web address] Information n ot available 09/14/2021 What Is The Highest Grade Or Level Of School You Have Completed Or The Highest Degree You Have Received? [id number] Information not available 05/03/2022 Are There Any Guns Present In Your Home? No Information not available 05/03/2022 Have You Ever Been Counseled For Unhealthy Alcohol Use? No [email or web address] Information not available 08/05/2022 Do You Use Protection During Sex? No Information not available 05/03/2022 Do You Use Your Seat Belt Or Car Seat Routinely? Yes [email or web address] Information not available 09/14/2021 Do You Have Smoke And Carbon Monoxide Detectors In Your Home? Yes [email or web address] Information not available 09/14/2021 How Much Tobacco Do You Smoke? No Information not available 05/03/2022 Do You Use Sunscreen Routinely? Yes [email or web address] Information not available 09/14/2021 Has Tobacco Cessation Counseling Been Provided? No [email or web address] Information not available 08/05/2022 Have You Used IV Drugs? No Information not available 05/03/2022 Do You Have Difficulty Walking Or Climbing Stairs? No [email or web address] Information not available 08/05/2022 Sex: Unknown Functional Status Question Answer Note LastModified by Organizat ion Details LastModified Time Do you use any illicit or recreational drugs? No [email or web address] Information not available 09/14/2021 Do you or have you ever used any other forms of tobacco or nicotine? No [email or web address] Information not available 08/05/2022 What is your level of alcohol consumption? Occasional [email or web address] Information not available 09/14/2021 Are you able to walk? YESWOREST [email or web address] Information not available 09/14/2021 Are you able to care for yourself? 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 No Information not available 08/05/2022 What is your exercise level? Occasional [email or web address] Information not available 09/14/2021 Mental Status Question Answer Note LastModified by Organization D etails LastModified Time Do you feel stressed (tense, restless, nervous, or anxious, or unable to sleep at night)? [id number] Information not available 05/05/2023 Family History Relationship Description Onset Age of this Age Resolved Age Notes LastModified by Organization Details LastModified Time Sister Cyst of ovary [email or web address] Not available 07/15 14:32:54 Mother Osteoporosis Not avai lable 05/03/2022 16:51:32 Medical History Condition Response Allergies (Food, seasonal, environmental ) N Other Y Breast Cancer N Drug/Latex Allergies/Reactions N Blood Transfusion N Dermatologic Disorders Y Lung Disease N Defects or Inherited Disease N Breast Problem Y Gestational Diabetes N Hematologic disorders N Anesthesia Complications N History of STI Y Deep Vein Thrombosis N Polycystic ovary syndrome N Anxiety Disorder N Autoimmune disease N Arthritis N Infertility N Polyps N Acid Reflux (GERD) N History of abnormal pap N Cancer N Stroke N Varicosities N Neurologic/Epilepsy N Endometriosis N High Cholesterol N Headaches N Fibromyalgia N Kidney Disease N Heart Problems N Kidney or Bladder Problems N Thyroid Problems N GI Problems Y Eating Disorder N Anemia N Art (IVF or FET) N Psychiatric Illness N Ovarian Cancer N Diabetes N Pulmonary (TB, Asthma) N Hepatitis/Liver Disease N No Past Medical History N Eczema N Urinary Tract Infection N Abuse/Domestic Violence N Asthma N Trauma/Violence N Depression/ depression N Heart Disease N Pre-Eclampsia N Hypertension N Osteoporosis N Thrombophilias N Gynecological History Statement/Question Response Abnormal Pap N Date of Last Mammogram Flow Moderate Date of LMP 07/08/2024 On BCP's at Conception? N N Was last menstrual period normal Y STIs/STDs Y HPV Vaccine N Duration of Flow (days) 14 Current Control Method Partner Vas ectomy Age at First Child 32 Frequency of Cycle (Q days) 28 Sexually Active? Y Menses Monthly N Date of DEXA bone scan Age of first menstrual cycle 13 Date of Last Pap Smear 05/05/2023 Sexual Problems? N LMP Definite N Obstetrics History GPAL:G 3 P 2 0 1 2 Type Value Full Term 2 Spontaneous 1 Living 2 Total 3 Past Encounters Encounter ID Performer Location Encounter Start Date Encounter Closed Date Diagnosis/Indication Diagnosis SNOMED-CT Code Diagnosis ICD10 Code Diagnosis Note [id number] ADALBERTO Valdez[address] [address] 09/12/2021 11:08:50 09/12/2021 12:19:47 [id number] Fidel Salamanca MD [facility] [address],[place] [address] 10/01/2021 11:59:04 10/01/2021 13:51:40 Cyst of ovary 50269128 N83.209 [id number] Fidel Salamanca MD [facility] [address],[place] [address] 10/03/2021 11:27:52 10/03/2021 12:24:35 Cyst of ovary 47478022 N83.209 patient is a 51-year-ol d female presents for follow-up on ultrasound . She was known to have ovarian cyst. She presents to discuss ovarian cyst management . Talked about the etiology, natural history, treatment, observatio n of cyst. We spent over 40 minutes face-to-fa ce. More than 50% was counseling . We reviewed images together the ultrasound was performed. She has very benign-jaylin earing 3.5 cm ovarian cyst. We agreed to follow-up on in 6 months. [id number] Fidel Salamanca MD [facility] [address],[place] [address] 04/19/2022 16:40:23 04/19/2022 17:19:27 Cyst of right ovary [id number] 3014951 N83.201 [id number] Fidel Salamanca MD [facility] [address],[place] [address] 05/03/2022 16:43:28 05/06/2022 12:59:50 Pain in pelvis 89450781 R10.2 this patient is a 52-year-ol d female presents for follow-up on ultrasound . She has uterine fibroids, she has a cyst the ovary. She is known to have endometrio sis. She had a recent A failed endometria l biopsy discussed these findings in great detail. We discussed treatment options in great detail. We discussed risks and benefits of each treatment option. We discussed the efficacy. Talked about various surgical and medical treatment options. Ultimately , agreed to follow-up in 3 months with ultrasound and discussion of the results. Uterine leiomyoma 837976 05 D25.9 Cyst of ovary 45813361 N 83.209 Failed end ometrial biopsy 266952870 N99.89 Endometrio sis of pelvis 03028506 N80.30 [id number] Fidel Salamanca MD [facility] [address] [address] 08/03/2022 16:47:49 08/04/2022 12:55:13 Postmenopausal bleeding 96287001 N95.0 [id number] Fidel Salamanca MD [facility] [address] [address] 08/05/2022 16:54:19 08/06/2022 14:10:26 Cyst of ovary 38477774 N83.209 52-year-ol d female with ovarian cyst. It was relatively simple previously . Repeat ultrasound today shows some changes that are mildly or worrisome. We agreed to CA 125 we talked about surgical treatment options in detail. We spent 40 minutes face-to-fa ce. More than 50% was counseling we talked about oophorecto my of the ovary, we talked about hysterecto my and bilateral salpingo-o ophorectom y. , we talked about preserving 1 ovary. Talked about risks benefits of surgical menopause. Surgical removal the ovaries. She is going to consider her treatment options. She is going to contact us. She would likely favor total laparoscop ic hysterecto my and bilateral salpingo-o ophorectom y. Uterine leiomyoma 283152 05 D25.9 Endometrio sis of pelvis 78146644 N80.30 [id number] Fidel Salamanca MD [facility] [address] [address] 05/05/2023 17:14:20 05/05/2023 17:57:27 Gynecologic examination 53712167 Z01.419 Annual gynecologi erinn exam performed. Patient will come back in a year unless there are new symptoms. Suggest Calcium with Vitamin D if not eating in diet. Patient advised to get annual flu shot. Recommend yearly physicals and preform monthly breast exams. Genetic testing is available for patients with family history of cancer. Engage in safe sexual practices, use condoms. Encouraged to have daily exercise. Avoid tobacco and illicit drugs, moderation of alcohol. If BMI greater than 25 dietary consult advised. If you have any questions please call or email. mammogram- ordered colon cancer screening - done Pap smear- done laboratory evaluation - done by pmd [id number] Fidel Salamanca MD [facility] [address] [address] 07/31/2024 14:31:46 07/31/2024 15:26:55 Abnormal uterine bleeding 8020558435 9100 N93.9 -One episode of prolonged menstruati on (>14 days), now resolved-K nown hx of endometrio sis, ovarian cysts, and fibroids-T he patient and I discussed the various causes of abnormal uterine bleeding, including polyps, fibroids, hyperplasi a, atypia, anovulatio n, etc.-Pelvi c exam today WNL-We reviewed the typical evaluation with labs, pelvic US and possible endometria l biopsy. Recommende d updated pelvic ultrasound to assess fibroid size and r/o other abnormalit ies.-Brief ly discussed the options available for treatment (depending on the results of evaluation ) such as hormonal treatment (OCPs, progestins ), Mirena, endometria l ablation, and surgery.-S lexi bleeding has resolved, patient desires to monitor symptoms and declines pelvic ultrasound and labs at this time.-Sche duled for WWE next month-Perla ent will follow-up sooner if bleeding irregulari ty persists. Patient is to contact office or go to nearest ED if fever >/= 100.1, pain, excessive bleeding, unusual drainage or swelling in area of concern; or experienci ng worsening sx's or new onset of concerning sx's. Understand ing verbalized . All questions answered to patient satisfacti on. Health Concerns Section Related Observation LastModified by Organization Detai ls LastModified Time None Recorded Concern Status LastModified by Organization Details LastModified Time None Recorded Advance Directives Directive N: Payers Insurance Date Sequence Insurance Name Policy Number Policy Bacon Covered Member ID Bacon Member ID Guarantor Name 07/28/2024 1 [place] [id number] Michelle Comer [id number] Michelle Comer Notes Date Note Type Note Provider Name and Address Organization Details Recorded Time 05/03/2022 text/html this patient is a 52-year-old female presents for follow-up on ultrasound. She has uterine fibroids, she has a cyst the ovary. She is known to have endometriosis. She had a recent A failed endometrial biopsy discussed these findings in great detail. We discussed treatment options in great detail. We discussed risks and benefits of each treatment option. We discussed the efficacy. Talked about various surgical and medical treatment options. Ultimately, agreed to follow-up in 3 months with ultrasound and discussion of the results. Fidel Salamanca MD [address], [place], [address], [facility] 05/05/2022 22:24:56 08/05/2022 text/html 52-year-old fema le with ovarian cyst. It was relatively simple previously. Repeat ultrasound today shows some changes that are mildly or worrisome. We agreed to CA 125 we talked about surgical treatment options in detail. We spent 40 minutes [id number]. More than 50% was counseling we talked about oophorectomy of the ovary, we talked about hysterectomy and bilateral salpingo-oophorect myke. , we talked about preserving 1 ovary. Talked about risks benefits of surgical menopause. Surgical removal the ovaries. She is going to consider her treatment options. She is going to contact us. She would likely favor total laparoscopic hysterectomy and bilateral salpingo-oophorect myke. Fidel Salamanca MD [address], [place], [address], [facility] 08/05/2022 22:58:15 05/05/2023 text/html Annual GYNReport ed bypatient.History: no gynecologic complaints Menstrual cycle:Normal menses Urinary symptoms:No hematuria; No incontinence Vulva:No genital lesion Vagina:Normal vaginal discharge Breast:No breast pain; No breast lump Sexual complaints:No sexual complaints; No pain during intercourse Menopausal Symptoms:No menopausal symptoms Psychological symptoms:No depression; No anxiety Preventive measures:Encourage self breast examination; Encourage regular exercise Fidel Salamanca MD [address], [place], [address], [facility] 05/05/2023 17:55:22 07/31/2024 text/html 54 y/o female presents with concern irregular bleeding.Patient states that her LMP started 07/08/24 and lasted until 07/28/24 with light to moderate flow. Patient states that she still feels cramping in her lower pelvis, especially when running or exercising. Patient states that ibuprofen relieves the cramping temporarily.Patifermin t states that her cycles typically last 28-30 days, last 6 days, with moderate flow.Patient has hx of endometriosis, ovarian cysts, and fibroids. Patient states that she will still have intermittent dull lower pelvic pain throughout each month.Patient states that she previously planned to have total hysterectomy with BSO [place] [address] Greenwood, but the right ovarian cyst they were monitoring resolved and patient decided not to have the surgery.Neg urinary sx'sNeg GI sx'sNeg N/V/F/C/DNeg Vag d/c, odor, irritation, itching SHEILA RED NP [address], [place], [address], [facility] 07/31/2024 15:23:49 OBGyn Episode Ob Episode Information Episode Created Date Number of Fetuses Patient Bloodtype Patient rh Status Prepregnancy Weight lbs Domestic Partner Domestic Partner Phone Father Name [employer] Erector Status 09/15/19 22 1 CLOSED Fetus Data First Name Last Name Admitted to NICU Weight (g) Sex Living Outcome Pediatric Complications Fetus ID Race Codes Race Delivery Type 2976.47 [id number] F Full Term [id number] Primary David Calculation Initial David Date Initial Exam Date Initial Exam Provider Initial Ultrasound Date Last Menstrual Period Date Ultra Sound Weeks Gestation 0 Eighteen To Twenty Week David Update Ultra Sound Date Fundal Height At Umbil Quickening Date Ultra Sound Latest Weeks Gestation Final David Confirmed By Final David Confirmed Date Final David Date Ultra Sound Latest Days Gestation 0 0 Menstrual History Last Menstrual Date Menses Monthly On Bcp Conception Prior Menses Frequency Hcg Plus Date Menarche Onset Age Delivery Information Delivery Date Delivery Type Labor Anesthesia Weeks Gestation Incision Type Labor Labor Length Hrs Delivered By Post Complications Tubal Sterilization Discharge Date Comments 6 38 placenta abruption Discharge Information Feeding Method Contraceptive Method Maternal HG B and HCT Levels Ob Episode Information Episode Created Date Number of Fetuses Patient Bloodtype Patient rh Status Prepregnancy Weight lbs Domestic Partner Domestic Partner Phone Father Name [employer] Erector Status 09/15/19 22 1 CLOSED Fetus Data First Name Last Name Admitted to NICU Weight (g) Sex Living Outcome Pediatric Complications Fetus ID Race Codes Race Delivery Type , Spontane ous [id number] David Calculation Initial David Date Initial Exam Date Initial Exam Provider Initial Ultrasound Date Last Menstrual Period Date Ultra Sound Weeks Gestation 0 Eighteen To Twenty Week David Update Ultra Sound Date Fundal Height At Umbil Quickening Date Ultra Sound Latest Weeks Gestation Final David Confirmed By Final David Confirmed Date Final David Date Ultra Sound Latest Days Gestation 0 0 Menstrual History Last Menstrual Date Menses Monthly On Bcp Conception Prior Menses Frequency Hcg Plus Date Menarche Onset Age Delivery Information Delivery Date Delivery Type Labor Anesthesia Weeks Gestation Incision Type Labor Labor Length Hrs Delivered By Post Complications Tubal Sterilization Discharge Date Comments 1 Discharge Information Feeding Method Contraceptive Method Maternal HG B and HCT Levels Ob Episode Information Episode Created Date Number of Fetuses Patient Bloodtype Patient rh Status Prepregnancy Weight lbs Domestic Partner Domestic Partner Phone Father Name Wood Tank Erector Status 09/15/19 22 1 CLOSED Fetus Data First Name Last Name Admitted to NICU Weight (g) Sex Living Outcome Pediatric Complications Fetus ID Race Codes Race Delivery Type 3175.14 4 M Full Term [id number] Vaginal Delivery David Calculation Initial David Date Initial Exam Date Initial Exam Provider Initial Ultrasound Date Last Menstrual Period Date Ultra Sound Weeks Gestation 0 Eighteen To Twenty Week David Update Ultra Sound Date Fundal Height At Umbil Quickening Date Ultra Sound Latest Weeks Gestation Final David Confirmed By Final David Confirmed Date Final David Date Ultra Sound Latest Days Gestation 0 0 Menstrual History Last Menstrual Date Menses Monthly On Bcp Conception Prior Menses Frequency Hcg Plus Date Menarche Onset Age Delivery Information Delivery Date Delivery Type Labor Anesthesia Weeks Gestation Incision Type Labor Labor Length Hrs Delivered By Post Complications Tubal Sterilization Discharge Date Comments 2 40 Discharge Information Feeding Method Contraceptive Method Maternal HG B and HCT Levels
--- OUTSIDE RECORDS SUMMARY | 2024-08-02 14:24 | XMS_ITS | Encounter Summary ---
Author Organization [facility] Facility Care Team Providers Care Agricultural Equipment Design Engineer Name Role Phone Fabian Hernandez MD Primary Care Provider [phone] Fabian Hernandez MD Primary Care Provider [phone] Fabian Hernandez MD Unavailable [phone] Encounter Details Date Type Department Care Team (Latest Contact Info) Description 01/28/2017 Orders Only MMG CLINCONV ProviderAdam MD [address] [place] [address] Social History Tobacco Use Types Packs/Day Years Used Date Smoking Tobacco: Never Assessed Comments Unknown Sex and Gender Information Value Date Recorded Sex Assigned at Not on file Legal Sex Female 3:02 AM BOARD OPERATOR Gender Identity Not on file Sexual Orientation Not on file documented as of this encounter Plan of Treatment Not on file documented as of this encounter Procedures Procedure Name Priority Date/Time Associated Diagnosis Comments PROCEDURE - RESULT 2017 12 :00 AM BOARD OPERATOR documented in this encounter Results * PROCEDURE - RESULT (2017 12:00 AM BOARD OPERATOR) Narrative 2017 12:00 AM BOARD OPERATOR Ordered by an unspecified provider. Historical Provider Final Res ult documented in this encounter Visit Diagnoses Not on filedocumented in this encounter Care Teams Agricultural Equipment Design Engineer Relationship Specialty Start Date End Date Fabian Hernandez MD PCP - General Internal Medicine 10/17/18 10/18/18 Fabian Hernandez MD PCP - General 10/19/18 Fabian Hernandez MD Internal Medicine 10/19/18 documented as of this encounter
== END 2024-08-02 14:06 | disposition home or self-care (01) ==
LOC: ANHIMG 14:07
PROVIDERS: PCP Internal Medicine; Visit Provider Obstetrics & Gynecology
DX: Z12.31 Encounter for screening mammogram for malignant neoplasm of breast (principal); N64.89 Other specified disorders of breast
CPT/HCPCS: 77063; 77067

== ENCOUNTER 2024-08-29 13:33 | Outpatient (CLI) | payer BC, SELFPAY ==
--- NOTE | ~2024-08-29 | MMUS_ITS ---
EXAMINATION: MM diagnostic domingo RT w jose, US breast RT complete HISTORY: Follow-up developing right breast asymmetry TECHNIQUE: Additional 3-D tomosynthesis images of the right breast were performed and synthetic 2-D i mages were generated. CAD analysis was submitted and interpreted. High resolution complete right jorge st ultrasound was performed. COMPARISON: Comparison to multiple prior studies sequentially, with oldest reviewed study dated 04/05. BREAST PARENCHYMAL COMPOSITION: Dense: The breasts are extremely dense, which lowers the sensitivity of mammography. FINDINGS: MAMMOGRAPHIC FINDINGS: There are multiple masses of the right breast largest in the upper outer quadrant of the right breast , posteriorly. There are no suspicious calcifications or architectural distortion. ULTRASOUND: Complete US of all 4 quadrants of the right Breast/s and retroareolar region was reviewed. there are multiple cysts of the right breast, largest in the 10:00 position, 4 cm from the nipple measuring 2.2 cm corresponding to the mammographic finding. No suspicious masses to suggest malignancy. IMPRESSION: 1. No evidence for malignancy in the right breast. Multiple benign cysts. 2. Routine yearly screening mammogram and regular clinical breast examination are recommended. BI-RADS Category 2: Benign finding(s). Reviewed, dictated and finalized at location B. IMPRESSION: 1. No evidence for malignancy in the right breast. Multiple benign cysts. 2. Routine yearly screening mammogram and regular clinical breast examination a re recommended. BI-RADS Category 2: Benign finding(s).
--- OUTSIDE RECORDS SUMMARY | 2024-08-29 13:39 | XMS_ITS | Referral Summary ---
Author Organization [facility] Office Center Address [address] [place] [address] Care Team Providers Care Packaging Machine Operator Name Role Phone Fabian Hernandez MD Primary Care Provider [phone] Fabian Hernandez MD Unavailable [phone] Allergies No known active allergies Medications [...] as needed for pain (menstral cramps) Active apfmpmhfd-JJ-pj etaminophen 12.5-5-325 mg tabletIndicatio ns:Nasal Congestion Take [...] on file Legal Sex Female 3:02 AM STOCK GRADER Gender Identity Not on file Sexual Orientation Not on file Last Filed Vital Signs Vital Sign Reading Time Taken Comments Blood Pressure 111/73 01/19/2023 10:33 AM STOCK GRADER Pulse 71 01/19/2023 10:33 AM STOCK GRADER Temperature 36.9 C (98.4 F) 01/19/2023 10:33 AM STOCK GRADER Respiratory Rate 16 01/19/2023 10:33 AM STOCK GRADER Oxygen Saturation 97% 01/19/2023 10:33 AM STOCK GRADER Inhaled Oxygen Concentration - - Weight 69.4 kg (153 lb) 01/19/2023 10:33 AM STOCK GRADER Height 175.3 cm (5' 9.02) 01/19/2023 10:[address] Body Mass Index 22.58 01/19/2023 10:33 AM STOCK GRADER Plan of Treatment Not on file Procedures Procedure Name Priority Date/Time Associated Diagnosis Comments DIGITAL MAMMOGRAPHY Routine 07/24/2012 1 2:00 AM CDT from Last 3 Months or Most Recently Relevant to Health Maintenance Results * DIGITAL MAMMOGRAPHY (07/24/2012 12:00 AM CDT) Anatomical Region Laterality Modality Breast Mammography 07/24/2012 Narrative 07/25/2012 7:59 AM CDT [place], [place] MICHELLE RAMOSMHL O ENCOUNTER: [id number] BIRTHDATE: 1970 ORDERING PHYSICIAN: Nahed Han MD ATTENDING PHYSICIAN: Nahed Han MD TECHNOLOGIST: Tamar Hooks EXAM DATE: 07/24/2012 14:01 X-RAY#: [id number] DEPARTMENT OF RADIOLOGY MAMMOGRAPHY REPORT EXAM DESCRIPTION [...] comparison. The above report was dictated at [facility]. Authenticated by Karen Bond MD On 07/25/2012 08:09 Karen Bond MD LJS:cass Doc #: [id number] Dictation CC: Nahed Han MD Procedure Note Provider, MD Adam - 06/13/2016 [place], [place] MICHELLE RAMOSWOL ENCOUNTER: [id number] BIRTHDATE: 1970 ORDERING PHYSICIAN: Nahed Han MD ATTENDING PHYSICIAN: Nahed Han MD TECHNOLOGIST: Tamar Hooks EXAM DATE: 07/24/2012 14:01 X-RAY#: [id number] DEPARTMENT OF RADIOLOGY MAMMOGRAPHY REPORT EXAM DESCRIPTION [...] comparison. The above report was dictated at [facility]. Authenticated by Karen Bond MD On 07/25/2012 08:09 Karen Bond MD LJS:cass Doc #: [id number] Dictation CC: Nahed Han MD Historical Provider MD SHETTY MAMMO PROCEDURES Pippa l Result from Last 3 Months or Most Recently Relevant to Health Maintenance Insurance [employer] [place] [address] [place] [address] [place] Care Teams Packaging Machine Operator Relationship Specialty Start Date End Date Fabian Hernandez MD PCP - General 10/19/18 Fabian Hernandez MD Internal Medicine 10/19/18
--- OUTSIDE RECORDS SUMMARY | 2024-08-29 13:39 | XMS_ITS | Data Portability ---
Author Organization [facility] Address [address] [place] [address] [address] Care Team Providers Care Prison Guard Supervisor Name Role Phone LACI AMADOR Primary Care Provider Assessment Encounter Date Assessment Date Assessment LastModified by Organization Details LastModified Time 05/05/2023 05/05/2023 Annual gynecological exam performed. Patient will come back in a year unless there are new symptoms. [email or web address] Not available 05/05/2023 17:28:40 Plan of Treatment Reminders Order Date Submit Date Provider Last Modified By Organization Details Last Modified Time Details Appointments [facility] 2024 08:00A M SHEILA RED NP Not available Not available Not available Lab ca 125, serum [address] [facility] (Lab), [address], [place], [address], 08/06/2022 03:17:13 Referral None recorded. Procedures None recorded. Surgeries None recorded. Imaging US, transvagi nal 2022 023 [email or web address] [facility], [address], [address], [place], [address], 08/04/2022 12:55:13 Medication Orders None recorded. Patient TargetsNo targets recorded. Patient InstructionsNo instructions recorded. Reason for Referral None Reported. Results Created Date Observation Date Name Description Value Unit Range Abnormal Flag Note LastModifiedBy Organization Detail LastModifiedTime 08/06/1908/05/2022 CA 125 Ca 125 115.0 units /mL 0.0-35 .0 high This assay was perfo rmed using [employer] ratio n reage nts and test kits. Value s obtai cristopher with other assay metho ds or kits canno t be used inter garner eajackeliney . Not Available [facility] (Lab) [address], [place], [address], 08/06/2022 03:17:13 05/05/19 24 05/05/2023 IMAGE GUIDE D PAP AND HPV REGAR DLESS image guided Pap, HPV regardless of Pap result SEE RESULT S BELOW CASE REPOR T: Cytol ogy Gynec ologi erinn Repor t Case: [id number] Autho laci g Provi pascual: Fleisha Salamanca MD Colle cted: 05/04 1714 Order ing Locat ion: [place] Patho logy Recei annette: 05/05 0230 First Scree n: Eric Newby , [place] Rescr een: Kushal Rojas am, CT Speci men: Scree esteban Pap - Image d, Cervi x STATE MENT OF ADEQU ACY: Satis facto ry for evalu ation Trans forma tion zone compo nent absen t The absen ce of an endoc ervic al compo nent was confi rmed by an addit ional scree ner. FINAL DIAGN OSIS: Negat coretta for Intra epith elial Douglas n or Kristen miranda (NIL) . Lucas malcolm d by Kushal Rojas am, CT [...] techn ique. Roxann nued regul ar scree estebna is the best metho d of cance r preve ntion . If repor svetlana cytol ogic findi ng do not corre late with physi erinn and/o r histo rical findi ngs, furth er inves tigat ion is recom oscar d, as clini ton nye nted. Not Available [facility] (Lab) [address], [place], [address], 05/10/2023 06:38:27 04/20/1904/19/2022 US, ron s No observ ation record ed. [email or web address] [facility] [address], [place], [address], 04/19/2022 18:20:10 04/20/19 23 04/19/2022 US, trans vagin al No observ ation record ed. [email or web address] [facility] [address], [place], [address], 04/19/2022 18:20:01 04/20/19 23 04/19/2022 US, pelvi s No observ ation record ed. [email or web address] [address], [place], [address], 04/19/2022 21:25:42 08/04/19 23 08/03/2022 US, pelvi s No observ ation record ed. [email or web address] [address], [place], [address], 08/03/2022 22:10:39 08/04/19 23 08/03/2022 US, trans vagin al No observ ation record ed. [email or web address] [facility] [address], [place], [address], 08/03/2022 18:31:22 08/03/19 25 08/02/2024 MAMMO , scree esteban, digit al, bilat eral No observ ation record ed. [email or web address] [address] [facility], [place], [address], 08/07/2024 15:13:43 08/04/19 25 08/02/2024 MAMMO , scree esteban, tomos ynthe sis, bilat eral No observ ation record ed. [email or web address] [address] [facility], [place], [address], 08/07/2024 16:41:32 Result Notes None recorded. Procedures Surgical History Date Name Laterality Status Provider Name and Address Organization Details Recorded Time 4 Date of Last Pap Smear completed Dena Hopper [facility] 05/05/2023 17:29:41 3 hernia repair completed Dena Hopper [facility] 05/05/2023 17:30:06 8 procedure on vein completed [facility] 09/14/2021 11:48:56 6 section completed [facility] 09/14/2021 11:48:21 1 extraction of wisdom tooth completed [facility] 09/14/2021 11:48:35 Imaging Results None recorded. [...] Prescrib ed Elsewher e: No Locat ion: Antwon angelo [facility] M odify By: lee luke DateTime : [...] Body mass index (BMI) Body weight Systolic And Diastolic Provider Name and Address Organization Details Last Updated DateTime 05/03/2022 170.18 cm 24.1 kg/m2 72334.22 g 121/72 mm[Hg] Milagros Sanchez [facility] 05/03/2022 16:51:26 Date Recorded Body height Body mass index (BMI) Body weight Systolic And Diastolic Provider Name and Address Organization Details Last Updated DateTime 05/05/2023 170.18 cm 24.3 kg/m2 67501.82 g 131/78 mm[Hg] Dena Hopper [facility] 05/05/2023 17:28:54 Date Recorded Body height Body mass index (BMI) Body weight Systolic And Diastolic Provider Name and Address Organization Details Last Updated DateTime 07/31/2024 170.18 cm 24.2 kg/m2 62452.66 g 109/67 mm[Hg] Jenny Chambers [facility] 07/31/2024 14:39:58 Date Recorded Body height Body mass index (BMI) Body weight Systolic And Diastolic Provider Name and Address Organization Details Last Updated DateTime 08/05/2022 170.18 cm 23.2 kg/m2 25981.67 g 118/76 mm[Hg] Dena Hopper [facility] 08/05/2022 17:05:38 Social History Question Answer Notes LastModified by Organizat ion Details LastModified Time Tobacco Smoking Status Never Smoker Dena Hopper [facility], [facility] 08/05/2022 17:07:25 Do You Have An Advance Directive? No [email or web address] Information n ot available 08/05/2022 How Many Years Have You Consumed Alcohol? 30 [email or web address] Information not available 08/05/2022 Are You Blind Or Do You Have Difficulty Seeing? No [email or web address] Information n ot available 09/14/2021 What Is Your Level Of Caffeine Consumption? Moderate [email or web address] Information not available 09/14/2021 How Much Tobacco Do You Chew? None Information not available 05/03/2022 In The 14 Days Before Symptom Onset, Have You Had Close Contact With A Laboratory-confirm ed COVID-19 While That Case Was Ill? No [email or web address] Information n ot available 09/14/2021 In The 14 Days Before Symptom Onset, Have You Had Close Contact With A Person Who Is Under Investigation For COVID-19 While That Person Was Ill? No [email or web address] Information not available 09/14/2021 Have You Been To An Area Known To Be High Risk For COVID-19? No [email or web address] Information not available 09/14/2021 Are You Deaf Or Do You Have Serious Difficulty Hearing? No [email or web address] Information not available 09/14/2021 What Type Of Diet Are You Following? REGULAR [email or web address] Information n ot available 09/14/2021 What Is The Highest Grade Or Level Of School You Have Completed Or The Highest Degree You Have Received? [id number] Information not available 05/03/2022 Are There Any Guns Present In Your Home? No Information not available 05/03/2022 Have You Ever Been Counseled For Unhealthy Alcohol Use? No [email or web address] Information not available 08/05/2022 Do You Use Protection During Sex? No Information not available 05/03/2022 Do You Use Your Seat Belt Or Car Seat Routinely? Yes [email or web address] Information not available 09/14/2021 Do You Have Smoke And Carbon Monoxide Detectors In Your Home? Yes [email or web address] Information not available 09/14/2021 How Much Tobacco Do You Smoke? No Information not available 05/03/2022 Do You Use Sunscreen Routinely? Yes [email or web address] Information not available 09/14/2021 Has Tobacco Cessation Counseling Been Provided? No [email or web address] Information not available 08/05/2022 Have You Used IV Drugs? No Information not available 05/03/2022 Do You Have Difficulty Walking Or Climbing Stairs? No [email or web address] Information not available 08/05/2022 Sex: Unknown Functional Status Question Answer Note LastModified by Organizat ion Details LastModified Time Do you use any illicit or recreational drugs? No [email or web address] Information not available 09/14/2021 Do you or have you ever used any other forms of tobacco or nicotine? No [email or web address] Information not available 08/05/2022 What is your level of alcohol consumption? Occasional [email or web address] Information not available 09/14/2021 Are you able to walk? YESWOREST [email or web address] Information not available 09/14/2021 Are you able to care for yourself? 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 No [email or web address] Information not available 08/05/2022 What is your exercise level? Occasional Information not available 09/14/2021 Mental Status Question Answer Note LastModified by Organization D etails LastModified Time Do you feel stressed (tense, restless, nervous, or anxious, or unable to sleep at night)? [id number] [email or web address] Information not available 05/05/2023 Family History Relationship [...] SNOMED-CT Code Diagnosis ICD10 Code Diagnosis Note [id number] Heidi Pike [facility] [address] [address] 09/12/2021 11:08:50 09/12/2021 12:19:47 [id number] Fidel Salamanca MD [facility] [address],[place] [address] 10/01/2021 11:59:04 10/01/2021 13:51:40 Cyst of ovary 37277758 N83.209 [id number] Fidel Salamanca MD [facility] [address],[place] [address] 10/03/2021 11:27:52 10/03/2021 12:24:35 Cyst of ovary 87067288 N83.209 patient is a 51-year-ol d female [...] agreed to follow-up on in 6 months. [id number] Fidel Salamanca MD [facility] [address],[place] [address] 04/19/2022 16:40:23 04/19/2022 17:19:27 Cyst of right ovary 6760946337 9336370 N83.201 [id number] Fidel Salamanca MD [facility] [address] [address] 05/03/2022 16:43:28 05/06/2022 12:59:50 Pain in pelvis 67372814 R10.2 this patient is a 52-year-ol d [...] and discussion of the results. 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 [...] and bilateral salpingo-o ophorectom y. Uterine leiomyoma 282266 05 D25.9 Endometrio sis of pelvis 63544223 N80.30 [id number] Fidel Salamanca MD [facility] [address] [address] 05/05/2023 17:14:20 05/05/2023 17:57:27 Gynecologic examination 29486400 Z01.419 Annual gynecologi erinn exam performed. Patient [...] done laboratory evaluation - done by pmd [id number] Fidel Salmaanca MD [facility] [address] [address] 07/31/2024 14:31:46 07/31/2024 15:26:55 Abnormal uterine bleeding 5048432987 9100 N93.9 -One episode of prolonged menstruati [...] Member ID Bacon Member ID Guarantor Name 08/19/2024 1 [place] [id number] Michelle Comer [id number] Michelle Comer Notes Date Note Type [...] results. Fidel Salamanca MD [address], [place], [address], [facility] 05/05/2022 22:24:56 08/05/2022 text/html 52-year-old fema le with ovarian cyst. It was relatively simple previously. Repeat ultrasound today shows some changes that are mildly or worrisome. We agreed to CA 125 we talked about surgical treatment options in detail. We spent 40 minutes gboy-vl-uyfd. More than 50% was counseling we talked [...] myke. Fidel Salamanca MD [address], [place], [address], [facility] 08/05/2022 22:58:15 05/05/2023 text/html [...] exercise Fidel Salamanca MD [address], [place], [address], [facility] 05/05/2023 17:55:22 07/31/2024 text/html [...] itching SHEILA RED NP [address], [place], [address], [facility] 07/31/2024 15:23:49 OBGyn Episode Ob Episode Information Episode Created Date Number of Fetuses Patient Bloodtype Patient rh Status Prepregnancy Weight lbs Domestic Partner Domestic Partner Phone Father Name Cabinet Professional Status 09/15/19 22 1 CLOSED Fetus Data First Name Last Name Admitted to NICU Weight (g) Sex Living Outcome Pediatric Complications Fetus ID Race Codes Race Delivery Type 2976.47 0704 F Full Term 30044 Primary David Calculation Initial David Date Initial [...] Domestic Partner Domestic Partner Phone Father Name Cabinet Professional Status 09/15/19 22 1 CLOSED Fetus Data First Name Last Name Admitted to NICU Weight (g) Sex Living Outcome Pediatric Complications Fetus ID Race Codes Race Delivery Type , Spontane ous 55324 David Calculation Initial David Date Initial Exam [...] Domestic Partner Domestic Partner Phone Father Name Cabinet Professional Status 09/15/19 22 1 CLOSED Fetus Data First Name Last Name Admitted to NICU Weight (g) Sex Living Outcome Pediatric Complications Fetus ID Race Codes Race Delivery Type 3175.14 4 M Full Term [id number] Vaginal Delivery David Calculation Initial David Date [...]
--- OUTSIDE RECORDS SUMMARY | 2024-08-29 13:39 | XMS_ITS | Encounter Summary ---
Author Organization [facility] Facility Care Team Providers Care Plumbing Designer Name Role Phone Fabian Hernandez MD Primary Care Provider [phone] Fabian Hernandez MD Primary Care Provider [phone] Fabian Hernandez MD Unavailable [phone] Encounter Details Date Type Department Care Team (Latest Contact Info) Description 01/28/2017 Orders Only MMG CLINCONV ProviderAdam MD [address] [place] [address] Social History Tobacco Use Types Packs/Day Years Used Date Smoking Tobacco: Never Assessed Comments Unknown Sex and Gender Information Value Date Recorded Sex Assigned at Not on file Legal Sex Female 3:02 AM KNIFE FINISHER Gender Identity Not on file Sexual Orientation Not on file documented as of this encounter Plan of Treatment Not on file documented as of this encounter Procedures Procedure Name Priority Date/Time Associated Diagnosis Comments PROCEDURE - RESULT 2017 12 :00 AM KNIFE FINISHER documented in this encounter Results * PROCEDURE - RESULT (2017 12:00 AM KNIFE FINISHER) Narrative 2017 12:00 AM KNIFE FINISHER Ordered by an unspecified provider. Historical Provider Final Res ult documented in this encounter Visit Diagnoses Not on filedocumented in this encounter Care Teams Plumbing Designer Relationship Specialty Start Date End Date Fabian Hernandez MD PCP - General Internal Medicine 10/17/18 10/18/18 Fabian Hernandez MD PCP - General 10/19/18 Fabian Hernandez MD Internal Medicine 10/19/18 documented as of this encounter
--- OUTSIDE RECORDS SUMMARY | 2024-08-29 13:39 | XMS_ITS | Patient Health Record ---
Author Organization [facility] Address [address] [place], [place] [address] Care Team Providers Care Sour Bleaching Pleater Name Role Phone MaryFabian quezada Unavailable Unavailable Reason For Referral No Information Plan Of Treatment No Information Insurance Providers Payer Name Payer Address Payer Phone Subscriber Number Group Number Insured Name Patient Relationship to Insured Coverage Start Date Coverage End Date [facility] ATTN CLAIMS [address] [place] [address] [id number] CHING RAMOS Self - patient is the insured
--- OUTSIDE RECORDS SUMMARY | 2024-08-29 13:39 | XMS_ITS | Clinical Summary ---
Author Organization [facility] Office Center Address [address] [place] [address] Care Team Providers Care Boring Machine Set Up Operator Jig Name Role Phone Fabian Hernandez MD Primary Care Provider [phone] Fabian Hernandez MD Unavailable [phone] Allergies No known active allergies Medications [...] as needed for pain (menstral cramps) Active [id number]-KP-tx etaminophen 12.5-5-325 mg tabletIndicatio ns:Nasal Congestion Take [...] on file Legal Sex Female 3:02 AM NETWORK CONTROL SUPERVISOR Gender Identity Not on file Sexual Orientation [...] Comments Blood Pressure 111/73 01/19/2023 10:33 AM NETWORK CONTROL SUPERVISOR Pulse 71 01/19/2023 10:33 AM NETWORK CONTROL SUPERVISOR Temperature 36.9 C (98.4 F) 01/19/2023 10:33 AM NETWORK CONTROL SUPERVISOR Respiratory Rate 16 01/19/2023 10:33 AM NETWORK CONTROL SUPERVISOR Oxygen Saturation 97% 01/19/2023 10:33 AM NETWORK CONTROL SUPERVISOR Inhaled Oxygen Concentration - - Weight 69.4 kg (153 lb) 01/19/2023 10:33 AM NETWORK CONTROL SUPERVISOR Height 175.3 cm (5' 9.02) 01/19/2023 10:33 AM C Body Mass Index 22.58 01/19/2023 10:33 AM NETWORK CONTROL SUPERVISOR Plan of Treatment Health Maintenance Due Date [...] Mammography 07/24/2012 Narrative 07/25/2012 7:59 AM CDT [place], [place] CHING RAMOS WOL O ENCOUNTER: [id number] BIRTHDATE: 1970 ORDERING PHYSICIAN: Nahed Han MD ATTENDING PHYSICIAN: Nahed Han MD TECHNOLOGIST: Tamar Hooks EXAM DATE: 07/24/2012 14:01 X-RAY#: [id number] DEPARTMENT OF RADIOLOGY MAMMOGRAPHY REPORT EXAM DESCRIPTION [...] comparison. The above report was dictated at [facility]. Authenticated by Karen Bond MD On 07/25/2012 08:09 Karen Bond MD LJS:cass Doc #: [id number] Dictation CC: Nahed Han MD Procedure Note Provider, MD Adam - 06/13/2016 [place], [place] CHING RAMOSWOMHL ENCOUNTER: [id number] BIRTHDATE: 1970 ORDERING PHYSICIAN: Nahed Han MD ATTENDING PHYSICIAN: Nahed Han MD TECHNOLOGIST: Tamar Hooks EXAM DATE: 07/24/2012 14:01 X-RAY#: [id number] DEPARTMENT OF RADIOLOGY MAMMOGRAPHY REPORT EXAM DESCRIPTION [...] comparison. The above report was dictated at [facility]. Authenticated by Karen Bond MD On 07/25/2012 08:09 Karen Bond MD LJS:cass Doc #: [id number] Dictation CC: Nahed Han MD Historical Provider MD SHETTY MAMMO PROCEDURES [place] Result from Last 3 Months or Most Recently Relevant to Health Maintenance Insurance [place] Care Teams Boring Machine Set Up Operator Jig Relationship Specialty Start Date End Date Fabian Hernandez MD PCP - General 10/19/18 Fabian Hernandez MD Internal Medicine 10/19/18
== END 2024-08-29 13:34 | disposition home or self-care (01) ==
PROVIDERS: PCP Internal Medicine; Visit Provider Obstetrics & Gynecology
DX: R92.8 Other abnormal and inconclusive findings on diagnostic imaging of breast (principal); N60.11 Diffuse cystic mastopathy of right breast
CPT/HCPCS: 76641; 77061; 77065; G0279